=== PATIENT | male | born 1970 | race African-American/Black ===

== ENCOUNTER 2019-11-22 18:42 | Observation (INO) | payer OTHER, SELFPAY ==
[2019-11-22] VITALS (7 sets, daily range): BP systolic 163–210; BP diastolic 89–101; PULSE 83–97; RESP 16–20; TEMP 36.8; O2SAT 95–100
--- NOTE | ~2019-11-22 | CT_ITS ---
EXAMINATION: CT abdomen pelvis w con DATE: 11/22/2019 21:08 INDICATION: Scrotal pain and swelling. Assess for foreign knees gangrene. TECHNIQUE: Computed tomography (CT) of the abdomen and pelvis was performed with 100 mL Omnipaque-350 intravenous contrast. Automated exposure control and iterative reconstruction technique were employe d. The dose-length product was 2100.64 mGy-cm. COMPARISON: None FINDINGS: Lung bases are clear. Heart size is normal. No pericardial or pleural effusion. Liver, gallbladder, s pleen and pancreas are normal. Nonspecific bilateral adrenal nodules measuring 3.8 x 2.2 cm on the le ft and 3.3 x 1.5 cm on the right. 7 mm nonobstructing stone at a lower pole calyx of the left kidney. Kidneys otherwise unremarkable is symmetric enhancement and no hydronephrosis. Bowels including the appendix are normal. Bladder is normal. No free intraperitoneal gas or fluid. No pathologically enlar ged abdominal or pelvic lymphadenopathy. Small fat-containing left inguinal hernia. Small left and ve ry small right hydroceles. Prominent scrotal edema. No evident soft tissue gas to suggest Mary Kay's gangrene. Moderate lower lumbar spondylosis with mild spondylosis in the more cephalad lumbar and low er thoracic spine. IMPRESSION: 1. Small left and very small right hydroceles and prominent scrotal edema. No evident soft tissue gas to suggest Mary Kay's gangrene. 2. Bilateral adrenal nodules which in the absence of known malignancy are statistically most likely t o represent adenomas. Would recommend follow-up adrenal protocol pre and postcontrast CT or MRI. Reviewed, dictated and finalized at location A. IMPRESSION: 1. Small left and very small right hydroceles and prominent scrotal edema. No e vident soft tissue gas to suggest Mary Kay's gangrene. 2. Bilateral adrenal nodules which in the absence of known malignancy are stati stically most likely to represent adenomas. Would recommend follow-up adrenal p rotocol pre and postcontrast CT or MRI.
--- NOTE | ~2019-11-22 | US_ITS ---
EXAMINATION: US venous doppler [facility] DATE: 11/23/2019 10:40 INDICATION: Lower limb swelling. TECHNIQUE: Grayscale ultrasound images without and with compression and Doppler ultrasound images of the bilateral lower extremity veins were obtained. COMPARISON: None. FINDINGS: The visualized portions of right common femoral vein, profunda (deep) femoral vein, femoral vein, pop liteal vein, peroneal veins, posterior tibial veins, and greater saphenous vein outflow are patent. T here is a large right-sided Perera's cyst. The visualized portions of left common femoral vein, profunda femoral vein, femoral vein, popliteal v ein, peroneal veins, posterior tibial veins, and greater saphenous vein outflow are patent. IMPRESSION: 1. No deep venous thrombosis. 2. Large right-sided Perera's cyst. Reviewed, dictated and finalized at location A.
--- NOTE | 2019-11-22 19:08 | ED.ABDPAIN ---
HPI - Abdominal Pain General Chief Complaint: Urogenital-Male Stated Complaint: Swelling groin Time Seen by Provider: 11/22/19 19:06 Source: patient Mode of arrival: ambulatory Limitations: no limitations History of Present Illness HPI narrative: Patient is a 49-year-old male with a history of diabetes who presents for evaluation of scrotal pain. Patient was referred to this facility from [facility] for possible need for urological specialty. Patient has had 2 weeks of worsening scrotal pain that initially started on the right side but now also involves the left scrotum. Patient denies penile discharge or lesions, no fever or chills, pain is dull, aching in nature in the scrotum. No back pain. No rashes. No upper abdominal pain or chest pain. Patient has been on Levaquin, Flagyl, and now doxycycline without improvement in his symptoms. Patient had an ultrasound today which showed may be concern for Mary Kay's gangrene so the patient was referred to this facility. On the ultrasound, patient had normal flow bilaterally. Scrotal ultrasound, [facility], 11/22/2019: Right testes dimensions are 3.9 x 2.3 x 2.8 cm demonstrating increased echogenic appearance and normal blood flow. Correlate for artifact versus residuals chronic infection. There is a small hydrocele. Epididymis is echogenic measuring 2 x 1 or 1 x 1.6 cm. Left hemiscrotum: Left testes dimensions 3.9 x 2.8 x 2.4 cm demonstrating mild increased echogenic appearance with mild increased blood flow then this could correlate to infection. There is some moderate to large hydrocele. The epididymis is enlarged measuring 3.4 x 1.1 x 3.3 cm which may relate to epididymal orchitis. Impression: 1. Findings may relate to bilateral orchitis and less epididymitis. 2. Bilateral hydroceles. 3. Thickened scrotal skin, correlate for cellulitis?Mary Kay's fasciitis. Related Data Home Medications Medication Instructions Recorded Confirmed acyclovir 400 mg PO BID 11/22/19 albuterol sulfate 2 puff INHALATION QID 11/22/19 atorvastatin 40 mg PO DAILY 11/22/19 carvedilol 25 mg PO BID 11/22/19 enalapril maleate 20 mg PO DAILY 11/22/19 hydralazine 50 mg PO BID 11/22/19 insulin glargine [Basaglar KwikPen 56 unit SUBCUT QPM 11/22/19 U-100 Insulin] insulin lispro [Admelog SoloStar 25 unit SUBCUT TID 11/22/19 U-100 Insulin] isosorbide dinitrate 20 mg PO DAILY 11/22/19 Allergies Allergy/AdvReac Type Severity Reaction Status Date / Time No Known Allergies Allergy Verified 11/22/19 18:57 Review of Systems Review of Systems: Narrative: CONSTITUTIONAL: Denies fever, chills, or sweats. CARDIOVASCULAR: Denies chest pain, palpitations, or edema. RESPIRATORY: Denies cough or dyspnea. GASTROINTESTINAL: Denies abdominal pain, nausea, vomiting, or diarrhea. GENITOURINARY: Denies dysuria or hematuria. Reports scrotal pain and swelling. SKIN: Denies rash or itching. MUSCULOSKELETAL: Denies back pain, joint pain, or myalgia. NEUROLOGIC: Denies headache, numbness, or weakness. [facility] Past Medical History Medical History (Updated 11/22/19 @ 22:53 by Dana Canada MD) Diabetes Hyperlipidemia Hypertension Surgical History Surgical History (Updated 11/22/19 @ 19:19 by Dana Canada MD) Hx of abdominal surgery Social History Social History (Updated 11/22/19 @ 19:19 by Dana Canada MD) Smoking status: Never smoker Alcohol intake: never Substance use: never Gender identity (if verbalized by the patient): Male Exam Narrative: Exam Narrative: GENERAL: Awake, alert, conversant HEAD: Normocephalic, atraumatic. EYES: PERRLA and EOMI. ENT: Nares clear, no rhinorrhea or epistaxis. Mucous membranes moist. NECK: Supple. CHEST: No respiratory distress, breathing even and non labored HEART: Regular rate, sinus rhythm ABDOMEN: Obese abdomen non distended, non tender : Bilateral testicular edema,right greater than left, mild erythe
[2019-11-22] MEDS: SODIUM CHLORIDE 0.9% IV 1,000 ML 999 ML IV CONT (19:40)
[2019-11-22 19:48] LABS: Basophils Percent Auto 0.5 % (0.2-1.2); Eosinophils Absolute Auto 0.2 K/mm3 (0-0.3); Eosinophils Percent Auto 3.8 % (0-4.4); Hematocrit 37.9 % (42.0-52.0); Hemoglobin 12.2 g/dL (14.0-18.0); Immature Granulocyte Absolute 0.01 K/mm3 (0.00-0.031); Immature Granulocyte Percent A 0.2 % (0-0.5); Lymphocytes Absolute Auto 1.61 K/mm3 (0.9-3.2); Lymphocytes Percent Auto 26.3 % (18.3-44.2); Mean Corpuscular HGB Conc 32.2 g/dl (32-36); Mean Corpuscular Hemoglobin 29.1 pg (26-34); Mean Corpuscular Volume 90.5 fl (80-100); Monocytes Absolute Auto 0.6 K/mm3 (0.1-0.6); Monocytes Percent Auto 10.5 % (2.6-8.5); Neutrophils Absolute Auto 3.6 K/mm3 (1.3-6.7); Neutrophils Percent Auto 58.7 % (45.5-73.1); Platelet Count Result 289 k/mm3 (150-375); Red Blood Count 4.19 M/mm3 (4.6-6.20); Red Cell Distribution Width 13.2 % (11.5-14.5); White Blood Count 6.1 K/mm3 (4.5-10.0)
[2019-11-22 19:50] LABS: Add Urine Microscopic? YES; Appearance Urine Clear (Clear); Bilirubin Urine Negative (Negative); Blood Urine Negative (Negative); Color Urine Yellow (Yellow); Glucose Urine UA 2+ mg/dL (Negative); Ketones Urine Negative (Negative); Leukocyte Esterase Ur Negative LEU/UL (Negative); Mucus Urine Rare /lpf; Nitrate Urine Negative (Negative); Protein Urine 1+ mg/dL (Negative); RBC Urine 0-2 /hpf (0-2); Specific Grav Ur 1.015 (1.001-1.035); Squamous Epithelial Cell Urine Rare /hpf (Few); Urobilinogen Urine Negative mg/dL (<2.0); WBC Urine 0-3 /hpf
[2019-11-22 20:00] LABS: Lactic Acid Reflex 1.7 mmol/L (0.7-2.1)
[2019-11-22 20:19] LABS: Erythrocyte Sedimentation Rate 45 mm/hr (0-20)
[2019-11-22] MEDS: ACETAMINOPHEN 500 MG TABLET 1000 MG PO (20:29)
[2019-11-22] MEDS: MORPHINE SULFATE 4 MG/ML INJ 6 MG IV PUSH (20:31)
[2019-11-22 20:32] LABS: Alanine Aminotransferase 29 U/L (4-50); Albumin Level 3.8 g/dL (3.5-5.1); Alkaline Phosphatase 106 U/L (38-126); Aspartate Amino Transferase 45 U/L (17-59); Bilirubin,Total 0.3 mg/dL (0.2-1.3); Blood Urea Nitrogen 15 mg/dL (9-20); Calcium 8.9 mg/dL (8.4-10.2); Carbon Dioxide 29 mmol/L (22-30); Chloride 103 mmol/L (98-107); Estimated CRCL calculation 147 ml/min; Estimated Glomerular Filt Rate > 60; Glucose 298 mg/dL (75-110); Potassium 4.1 mmol/L (3.4-5.0); Sodium 137 mmol/L (137-145)
--- NOTE | 2019-11-22 23:40 | ADMGEN ---
This patient, Sarah Beth Humphries, was admitted to Medical Room 349-01. Patient/family oriented to hospital policies and general routines including ID bracelet, bed and alarms, visiting hours, pain management, procedures, bathroom and other care routines, personal items, smoking policy, room service/diet, and visiting hours. Valuables list has been completed. Information on how to activate the Rapid Response Team has been discussed. Patient/Family are encouraged to report perceived risks to care and to ask questions if they do not understand what they are told or what they should do.
[2019-11-22] MEDS: carvediloL 25 MG TABLET PO (23:43)
[2019-11-23 00:03] VITALS: BMI 47.6
[2019-11-23] MEDS: hydrALAZINE 10 MG TABLET 30 MG PO (00:07)
[2019-11-23 00:14] LABS: Glucose Point of Care 251 (65-105)
[2019-11-23 08:30] VITALS: BP 180/99; PULSE 81; RESP 20; TEMP 36.2; O2SAT 98
[2019-11-23 08:31] LABS: Glucose Point of Care 284 (65-105)
--- NOTE | 2019-11-23 09:31 | PM.IMHP ---
H&P: HPI History of Present Illness Chief complaint: Scrotal pain and swelling Narrative: Date of Service 11/23/19 [id number] The supervising physician for this history and physical is Dr. Dickinson said well. Mr. Humphries is a 49-year-old male with history of hypertension, insulin-dependent type 2 diabetes mellitus, and hyperlipidemia who presented to the ED for evaluation of scrotal pain and swelling. He notes his symptoms began 11/15/19 with left-sided testicular pain. His symptoms worsened over the last several days and now includes diffuse scrotal swelling and sharp stabbing/stinging pain. He was seen in [place] ED 11/14, 11/19, and again yesterday 11/21 due to the symptoms and had been treated with oral Levaquin and doxycycline. He reports his primary care provider prescribed Bactrim yesterday, which he was not able to take get as he was instructed to present to ED. [facility] instructed he present here to [facility] for possible urology evaluation. He denies any fevers or chills at home. He denies any dysuria, hematuria, penile discharge or lesions. He has had no issues with appetite and denies any nausea or vomiting. He describes some loose stools which he attributes to the oral antibiotics from last week. Scrotal ultrasound from [facility] 11/22/19 per our ED note is outlined below but shows bilateral hydroceles and thickened scrotal skin. There was initially some concern for Mary Kay's fasciitis so CT abdomen/pelvis was obtained here which shows no evidence of free air or soft tissue gas to suggest Mary Kay's gangrene. CT shows small left and very small right hydroceles and prominent scrotal edema. ED provider spoke with Urology who determined there was no urological emergency and did not feel need for consultation at this time. He was given a dose of IV Zosyn in the ED and is admitted for management of scrotal cellulitis. Review of Systems Review of Systems: Narrative: Patient describes scrotal pain and swelling that began 11/15/19. He denies penile discharge, lesions, dysuria or hematuria. He denies chest pain, shortness of breath, dizziness or headaches. His appetite has been adequate and denies nausea or vomiting. He reports to nursing some loose BMs over the last few days, no melena or hematochezia. Twelve systems were reviewed with pertinent positives and negatives as per HPI. Except as documented, all other systems were reviewed and are negative. [facility] Past Medical History Medical History Diabetes Hyperlipidemia Hypertension Surgical History Surgical History (Updated 11/22/19 @ 19:19 by Dana Canada MD) Hx of abdominal surgery Social History Social History (Updated 11/23/19 @ 10:09 by Dee Espana PA-C) Social History: Mr. Humphries lives at home with his girlfriend in [place], [place] and is on disability. He reports occasionally drinking beer about twice per month. Never smoker, denies other drug use. His PCP is Dr Don Myers. He designates his mother, Barbara Humphries, as his surrogate decision maker and wishes to be Full Code Status. Smoking status: Never smoker Second hand tobacco smoke exposure: No Alcohol intake: current Alcohol use details: Beer twice per month Substance use: never Occupation/Education: unemployed Additional occupation/education comments: On disability Gender identity (if verbalized by the patient): Male Sexual Orientation (if Verbalized by the Patient): Straight or Heterosexual Spiritual care concerns: Yes (Sabianist) Meds Home Medications and Allergies Home Medications Medication Instructions Recorded Confirmed Type acetaminophen-codeine 1 tablet PO QID PRN 11/22/19 11/22/19 History acyclovir 400 mg PO BID 11/22/19 11/22/19 History albuterol sulfate 2 puff INHALATION Q4HWA 11/22/19 11/22/19 History atorvastatin 40 mg PO DAILY 11/22/19 11/22/19 History carvedilol 25 mg PO BID
[2019-11-23] MEDS: INSULIN ASPART (*BKC) 100 UNITS/ML 20 UNITS SUB-Q ×2 (09:56→12:24)
[2019-11-23 09:58] VITALS: PULSE 84
[2019-11-23] MEDS: carvediloL 25 MG TABLET PO ×2 (09:58→20:47)
[2019-11-23] MEDS: ACYCLOVIR 400 MG TABLET PO ×2 (09:58→20:47)
[2019-11-23] MEDS: ATORVASTATIN 40 MG TABLET PO (09:58)
[2019-11-23] MEDS: ISOSORBIDE DINITRATE 20 MG TABLET PO (09:59)
[2019-11-23] MEDS: hydrALAZINE HCL 50 MG TABLET PO ×2 (09:59→17:07)
[2019-11-23] MEDS: ENALAPRIL MALEATE 10 MG TABLET PO (10:09)
[2019-11-23 12:13] LABS: Glucose Point of Care 324 (65-105)
[2019-11-23] MEDS: ENOXAPARIN 40 MG/0.4 ML SYRINGE SUB-Q (12:25)
[2019-11-23 14:00] VITALS: BP 144/79; PULSE 78; RESP 20; TEMP 36.2; O2SAT 99
--- NOTE | 2019-11-23 17:04 | PC.NURSE ---
Notified Dr. Zarate of glucose of 74. Orders received to give Novolog 5 units SQ x 1.
[2019-11-23] MEDS: INSULIN ASPART (*BKC) 100 UNITS/ML SUB-Q (17:13)
[2019-11-23 17:16] LABS: Glucose Point of Care 74 (65-105)
[2019-11-23 20:34] VITALS: PULSE 93; RESP 16; TEMP 36.4; O2SAT 99
[2019-11-23 20:47] VITALS: PULSE 93
[2019-11-23] MEDS: INSULIN GLARGINE (*BKC) 100 UNITS/ML 44 UNITS SUB-Q (20:47)
[2019-11-23 21:43] VITALS: PULSE 93; RESP 16; O2SAT 99
[2019-11-23 22:55] LABS: Glucose Point of Care 158 (65-105)
[2019-11-24 04:57] VITALS: BP 160/85; PULSE 88; RESP 18; TEMP 36.2; O2SAT 96
[2019-11-24] MEDS: INSULIN ASPART (*BKC) 100 UNITS/ML SUB-Q (07:57)
[2019-11-24] MEDS: INSULIN ASPART (*BKC) 100 UNITS/ML 20 UNITS SUB-Q ×3 (07:57→17:04)
[2019-11-24 08:01] LABS: Glucose Point of Care 219 (65-105)
[2019-11-24] MEDS: ACYCLOVIR 400 MG TABLET PO ×2 (08:01→20:35)
[2019-11-24] MEDS: ATORVASTATIN 40 MG TABLET PO (08:01)
[2019-11-24 08:02] VITALS: PULSE 80
[2019-11-24] MEDS: ISOSORBIDE DINITRATE 20 MG TABLET PO (08:02)
[2019-11-24] MEDS: hydrALAZINE HCL 50 MG TABLET PO ×2 (08:02→15:58)
[2019-11-24] MEDS: carvediloL 25 MG TABLET PO ×2 (08:02→20:35)
[2019-11-24] MEDS: ENOXAPARIN 40 MG/0.4 ML SYRINGE SUB-Q (08:02)
[2019-11-24] MEDS: ENALAPRIL MALEATE 10 MG TABLET PO (08:02)
--- NOTE | 2019-11-24 10:50 | PM.IMPN ---
Progress Note: A&P Assessment and Plan (1) Cellulitis of scrotum: Code(s): N49.2 - Inflammatory disorders of scrotum Status: Acute Assessment and Plan: Seen in [place] ED 11/14; 11/19; 11/21 for same; will request records but ED note reads US results below. Exam and CT abdomen here consistent with cellulitis and no free air or gas to suggest Mary Kay's gangrene. He was treated with oral levaquin starting 11/14; 11/19 Levaquin was stopped and doxycycline was started; 11/21 oral bactrim was added to doxy but patient did not have a chance to take it prior to coming here. Afebrile, no leukocytosis. Blood cultures pending with no growth to date. Improving; continue vancomycin and imipenem today (day 2) and anticipate possible discharge tomorrow. Scrotal ultrasound, [facility], 11/22/2019: Right testes dimensions are 3.9 x 2.3 x 2.8 cm demonstrating increased echogenic appearance and normal blood flow. Correlate for artifact versus residuals chronic infection. There is a small hydrocele. Epididymis is echogenic measuring 2 x 1 or 1 x 1.6 cm. Left hemiscrotum: Left testes dimensions 3.9 x 2.8 x 2.4 cm demonstrating mild increased echogenic appearance with mild increased blood flow then this could correlate to infection. There is some moderate to large hydrocele. The epididymis is enlarged measuring 3.4 x 1.1 x 3.3 cm which may relate to epididymal orchitis. Impression: 1. Findings may relate to bilateral orchitis and less epididymitis. 2. Bilateral hydroceles. 3. Thickened scrotal skin, correlate for cellulitis?Mary Kay's fasciitis. (2) Diabetes: Code(s): E11.9 - Type 2 diabetes mellitus without complications Status: Chronic Assessment and Plan: Insulin-dependent T2DM; Continue basal-bolus regimen similar to his home meds; monitor with accu-cheks and cover with SSI. (3) Hypertension: Code(s): I10 - Essential (primary) hypertension Status: Chronic Assessment and Plan: Blood pressures reviewed 11/23. Continue his home regimen including hydralazine, coreg, lisinopril, and isosorbide. Monitor BP and adjust treatment as needed. (4) Hyperlipidemia: Code(s): E78.5 - Hyperlipidemia, unspecified Status: Chronic Assessment and Plan: Continue his home statin therapy. Subjective Date/time seen: 11/24/19 10:15 Interval history: Mr. Humphries is a 49yo M admitted for scrotal cellulitis. He reports the pain has improved slightly today. He otherwise offers no complaints; no chest pain, shortness of breath, nausea or vomiting. Review of Systems Review of Systems: Narrative: Twelve systems were reviewed with pertinent positives and negatives as per HPI. Exam Narrative: Exam Narrative: General: Male resting comfortably in bed in no acute distress. HEENT: Normocephalic, atraumatic, EOMI, oral mucosa moist. Neck: Supple. Chest: Lungs clear to auscultation all dorado. Respirations are even and nonlabored. Tolerating room air. Heart: Heart rate and rhythm regular. Abdomen: Protuberant but soft, nontender, bowel sounds present. : Scrotal edema L > R is improved slightly; thickened indurated skin is much improved. Uncircumcised penis without discharge, lesions or exudates noted. Extremities: Peripheral pulses intact, trace to 1+ pitting edema to bilateral lower extremities. Neurologic: No focal neurological deficits noted. Speech is clear. Objective Data Vital Signs Vital Signs: Last Vital Signs Temp 97.1 F L 11/24/19 04:57 Pulse 80 11/24/19 08:02 Resp 18 11/24/19 04:57 BP 160/85 H 11/24/19 04:57 Pulse Ox 96 11/24/19 04:57 Intake/Output Intake/Output: Intake & Output 11/21/19 11/22/19 11/23/19 11/24/19 23:59 23:59 23:59 23:59 Intake Total 1050 4262 1840 Output Total 1760 750 Balance 1050 2502 1090
[2019-11-24 11:32] LABS: Glucose Point of Care 195 (65-105)
[2019-11-24 14:00] VITALS: BP 164/83; PULSE 88; RESP 16; TEMP 36.1; O2SAT 99
[2019-11-24 17:04] LABS: Glucose Point of Care 119 (65-105)
[2019-11-24 19:24] VITALS: BP 169/78; PULSE 97; RESP 18; TEMP 36.2; O2SAT 98
[2019-11-24 20:35] VITALS: PULSE 97
[2019-11-24] MEDS: INSULIN GLARGINE (*BKC) 100 UNITS/ML 44 UNITS SUB-Q (20:35)
[2019-11-24 21:15] LABS: Glucose Point of Care 180 (65-105)
[2019-11-24 21:17] LABS: Vancomycin Trough 13.4 ug/mL (10.0-20.0)
[2019-11-25 04:19] VITALS: BP 172/106; PULSE 89; RESP 12; TEMP 36.2; O2SAT 97
[2019-11-25] MEDS: hydrALAZINE HCL 20 MG/ML VIAL 10 MG IV PUSH (04:51)
[2019-11-25 06:36] LABS: Basophils Percent Auto 0.4 % (0.2-1.2); Eosinophils Absolute Auto 0.3 K/mm3 (0-0.3); Eosinophils Percent Auto 3.8 % (0-4.4); Hematocrit 37.5 % (42.0-52.0); Hemoglobin 12.2 g/dL (14.0-18.0); Immature Granulocyte Absolute 0.01 K/mm3 (0.00-0.031); Immature Granulocyte Percent A 0.1 % (0-0.5); Lymphocytes Absolute Auto 1.64 K/mm3 (0.9-3.2); Lymphocytes Percent Auto 23.9 % (18.3-44.2); Mean Corpuscular HGB Conc 32.5 g/dl (32-36); Mean Corpuscular Volume 89.3 fl (80-100); Mean Platelet Volume 10.3 fl (7.4-10.4); Monocytes Absolute Auto 0.7 K/mm3 (0.1-0.6); Monocytes Percent Auto 10.8 % (2.6-8.5); Neutrophils Absolute Auto 4.2 K/mm3 (1.3-6.7); Platelet Count Result 264 k/mm3 (150-375); Red Cell Distribution Width 13.2 % (11.5-14.5); White Blood Count 6.9 K/mm3 (4.5-10.0)
[2019-11-25 06:58] LABS: Blood Urea Nitrogen 11 mg/dL (9-20); Calcium 8.9 mg/dL (8.4-10.2); Carbon Dioxide 32 mmol/L (22-30); Chloride 103 mmol/L (98-107); Estimated CRCL calculation 146 ml/min; Estimated Glomerular Filt Rate > 60; Glucose 214 mg/dL (75-110); Magnesium 1.7 mg/dL (1.6-2.3); Potassium 3.6 mmol/L (3.4-5.0); Sodium 138 mmol/L (137-145)
[2019-11-25 07:39] VITALS: BP 193/98; PULSE 87
[2019-11-25 07:45] LABS: Glucose Point of Care 167 (65-105)
[2019-11-25] MEDS: INSULIN ASPART (*BKC) 100 UNITS/ML 20 UNITS SUB-Q ×2 (07:49→11:34)
[2019-11-25 07:55] VITALS: PULSE 87
[2019-11-25] MEDS: hydrALAZINE HCL 50 MG TABLET PO (07:55)
[2019-11-25] MEDS: ENOXAPARIN 40 MG/0.4 ML SYRINGE SUB-Q (07:55)
[2019-11-25] MEDS: carvediloL 25 MG TABLET PO (07:55)
[2019-11-25] MEDS: ENALAPRIL MALEATE 10 MG TABLET PO (07:56)
[2019-11-25] MEDS: ATORVASTATIN 40 MG TABLET PO (07:56)
[2019-11-25] MEDS: ACYCLOVIR 400 MG TABLET PO (07:56)
[2019-11-25] MEDS: ISOSORBIDE DINITRATE 20 MG TABLET PO (07:57)
[2019-11-25 08:00] VITALS: PULSE 87; RESP 12; O2SAT 97
[2019-11-25 11:33] LABS: Glucose Point of Care 190 (65-105)
--- NOTE | 2019-11-25 12:01 | PM.DS ---
DS: Admitting Diagnosis Admitting Diagnosis Admitting Diagnosis: Inflammatory disorders of scrotum DS: Discharge Diagnosis Discharge Diagnosis (1) Cellulitis of scrotum: Code(s): N49.2 - Inflammatory disorders of scrotum Status: Acute Assessment and Plan: Date of Service 11/25/19 Mr. Humphries is a pleasant 49 yo M with history of insulin-dependent type 2 diabetes mellitus, hypertension, hyperlipidemia who presented to the ED for evaluation of scrotal edema and pain. He notes his symptoms began 11/15/19 with left-sided testicular pain. His symptoms worsened over the last several days and now included diffuse scrotal swelling and sharp stabbing/stinging pain. He was seen in [place] ED 11/14, 11/19, and again 11/21 due to these symptoms and had been treated with oral Levaquin and doxycycline. [facility] instructed he present here to [facility] for possible urology evaluation. Scrotal ultrasound from [facility] 11/22/19 per our ED note is outlined below but shows bilateral hydroceles and thickened scrotal skin. There was initially some concern for Mary Kay's fasciitis so CT abdomen/pelvis was obtained here which showed no evidence of free air or soft tissue gas to suggest Mary Kay's gangrene. CT shows small left and very small right hydroceles and prominent scrotal edema; LOKESH adrenal nodules statistically most likely represent adenomas . Physical exam did not suggest any areas of necrosis. ED provider spoke with Urology who determined there was no urological emergency and did not feel need for consultation at this time. He was given a dose of IV Zosyn in the ED and is admitted for management of scrotal cellulitis. He was then treated with #3 days of IV vancomycin and imipenem per our antibiotic stewardship guidelines. Pain, swelling, and induration improved with IV antibiotics; no issues with urination. Blood pressures elevated; he was maintained on his home regimen and should follow up with PCP. He was hemodynamically stable for discharge 11/25/19 with instructions to follow up with PCP in 1 week. He was previously prescribed oral Bactrim by his PCP which he had not yet taken since he was headed to the ER; I've instructed him to take the Bactrim he already has in addition to oral amoxicillin sent in. He will call PCP or return to ER if he has any further issues. Bilateral adrenal nodules incidental finding on CT may represent adenomas; recommend outpatient follow up with pre and post-contrast CT or MRI. Not performed here as patient had already had contrast with first CT. Seen in [place] ED 11/14; 11/19; 11/21 for same, failed outpatient abx; ED note reads ultrasound results below. Exam and CT abdomen here consistent with cellulitis and luckily no free air or gas to suggest Mary Kay's gangrene. He was treated with oral levaquin starting 11/14; 11/19 Levaquin was stopped and doxycycline was started; 11/21 oral bactrim was added to doxy but patient did not have a chance to take it prior to coming here. Afebrile, no leukocytosis. Blood cultures pending with no growth to date. Improving; treated with vancomycin and imipenem IV. Scrotal ultrasound, [facility], 11/22/2019: Right testes dimensions are 3.9 x 2.3 x 2.8 cm demonstrating increased echogenic appearance and normal blood flow. Correlate for artifact versus residuals chronic infection. There is a small hydrocele. Epididymis is echogenic measuring 2 x 1 or 1 x 1.6 cm. Left hemiscrotum: Left testes dimensions 3.9 x 2.8 x 2.4 cm demonstrating mild increased echogenic appearance with mild increased blood flow then this could correlate to infection. There is some moderate to large hydrocele. The epididymis is enlarged measuring 3.4 x 1.1 x 3.3 cm which may relate to epididymal orchitis. Impression: 1. Findings may relate to bilateral orchitis and less epididymitis. 2. Bilateral hydroceles. 3. Thickened scrotal skin, correlate f
--- NOTE | 2019-12-01 10:34 | PC.NURSE ---
Blood cx are negative.
== END 2019-11-25 12:45 | disposition home or self-care (01) ==
LOC: ANHED 22:53 → ANH3MED 11-23 07:22
PROVIDERS: Admitting Provider Internal Medicine; Emergency Provider Emergency Medicine; PCP Internal Medicine Infectious Disease; Visit Provider Physician Assistant
DX: N49.2 Inflammatory disorders of scrotum (principal); E11.9 Type 2 diabetes mellitus without complications; Z79.4 Long term (current) use of insulin; I10 Essential (primary) hypertension; E78.5 Hyperlipidemia, unspecified; R22.43 Localized swelling, mass and lump, lower limb, bilateral
CPT/HCPCS: 36415; 74177; 80048; 80053; 80202; 81001; 83605; 83735; 85025; 85652; 86140; 87040; 93970; 96361; 96365; 96366; 96367; 96372; 96375; 99285; A9270; G0378; G0379; J0360; J0743; J1650; J1815; J2270; J2543; J3370; J7030; Q9967